=== PATIENT | male | born 1970 | race Caucasian/White ===

== ENCOUNTER 2025-02-18 11:31 | Outpatient (CLI) | payer OTHER, SELFPAY ==
--- NOTE | ~2025-02-18 | PE_ITS ---
EXAMINATION: PET_PETPSMAST_PT DATE: 02/18/2025 13:27 INDICATION: Prostate cancer TECHNIQUE: 5.578 mCi of Illucix Ga-[id number]) was administered i.v. Low dose computed rickey graphy (CT) images were acquired from the base of the brain to the base of the brain to the proximal thighs for attenuation correction and anatomic localization. Positron emission tomography (PET) image s were acquired in the same distribution beginning 72 minutes after injection. Images including fused PET/CT images were reconstructed in axial, coronal, and sagittal planes. Automated exposure control technique was employed. The dose-length product was 956.98mGy-cm. COMPARISON: None FINDINGS: Head/neck: Typical pattern of symmetric physiologic increased activity in the lacrimal, parotid and submandibula r glands as well as along the mucosa of the nasal and oral cavities, pharynx and hypopharynx. No path ologically enlarged cervical lymphadenopathy or suspicious foci of increased uptake in the visualized head or neck. Chest: Mild dependent atelectasis in the bilateral lower lobes. No pneumonia, suspicious pulmonary nodules, pulmonary edema or pleural effusion. Heart size is normal. No pericardial effusion. Thoracic aorta is normal in caliber. No pathologically enlarged or PSMA avid thoracic lymphadenopathy. Abdomen/pelvis/proximal thighs: Physiologic renal accumulation and excretion of activity in the kidneys, bladder and along portions o f ureters. A few small nonobstructing stones at the lower pole calyces of both kidneys the largest on the left measuring 4 mm. Subcentimeter focus of moderate increased activity at the right posterior i nferior aspect of the prostate with maximal SUV of 8.7 consistent with primary prostate cancer. Luba l degree and slightly heterogenous pattern of increased uptake throughout the liver and spleen withou t radiologic correlate or dominant PSMA avid lesion. The gallbladder, pancreas and bilateral adrenal glands are normal. Moderate uptake scattered throughout the bowels with typical duodenal and proximal jejunal predominance and without radiologic correlate, also likely physiologic. Normal appendix. Sma ll fat-containing umbilical small fat-containing right inguinal hernias. No other abnormal foci of in creased uptake or pathologically enlarged lymphadenopathy in the abdomen, pelvis or proximal thighs. Musculoskeletal: Mild S-shaped scoliosis of the lumbar and lower thoracic spine. Chronic appearing compression fractur es with mild anterior vertebral body height loss at T10. No suspicious lytic, blastic or abnormally P SA may avid bone lesions to suggest metastatic disease. IMPRESSION: 1. Small focus of moderate increased activity at the right posterior inferior aspect of the prostate consistent with primary prostate cancer. No lesion suspicious for metastatic disease. 2. Bilateral nonobstructing nephrolithiasis. Reviewed, dictated and finalized at location B. IMPRESSION: 1. Small focus of moderate increased activity at the right posterior inferior a spect of the prostate consistent with primary prostate cancer. No lesion suspic ious for metastatic disease. 2. Bilateral nonobstructing nephrolithiasis.
--- OUTSIDE RECORDS SUMMARY | 2025-02-18 12:27 | XMS_ITS ---
Author Organization [facility] truman Address [address] [facility] [address] [place] [address] Care Team Providers Care Canal Driver Name Role Phone Link De Los Santos Unavailable [phone] zzzzMigration, zzzzProvider Unavailable Unav ailable Allergies Allergen (clinical drug ingredient) Drug/Non Drug Allergy documented on EMR Reaction Allergy Type Onset Date Status Mold Unknown Allergy 10/06/2020 Active Pollen Pollen Unknown Allergy 10/06/2020 Active REASON FOR VISIT EMR-Fredi Encounters Encounter Location Date Provider Diagnosis [facility] [address] [facility] [address] [place] [address] 09/14/2023 zzzzProvider zzzzMigration Plan Of Treatment No Information Progress Notes * Olivier GASTELUM BDOB: [birth year] (54 yo M)Acc No.[id number]:09/14/2023 Patient: Alis QUINTANA Olivier Estevez :1970 A ge:52 Y S ex:Male Address:[facility] [place] [address], [address] Subjective: * Chief Complaints: * E MR-Fredi * Medical History: * Surgical History: L ithotripsy; 2016-02-29 * Hospitalization/Major Diagno stic Procedure: * Family History: M igrated Family History: noncontributory . * Social History: M igrated Social History: M igrated Social History: :: 4 Children , Exercise :: Active , Marital Status :: , Substance Use :: Alcohol,socially , Substance Use :: Beer , Substance Use :: Caffeine , Substance Use :: Denies illicit substance abuse , Substance Use :: Tobacco :: Former. * Medications: * Allergies: M old: Allergy - Onset Date 10/06/2020Pollen: Allergy - Onset Date 10/06/2020 Objective: * Vitals: * Physical Examination: Assessment: Plan: * Treatment: * Procedure Codes: * true * Date: Generated for Jeff paul/Jhonatan/Karen on: 0 02/18/2025 12:27 PM CDT
--- OUTSIDE RECORDS SUMMARY | 2025-02-18 12:27 | XMS_ITS | Encounter Summary ---
Author Organization [facility] Address [address] [place] [address] Care Team Providers Care Evaluator Transfer Students Name Role Phone Unavailable Primary Care Provider Unavailabl e Prior Encounters Date Type Department Care Team Description 12/13/2019 Converted CPS Chart Documents [facility] [address] [phone] <No scans attached> 12/13/2019 Converted 13x Documents [facility] [address] [phone] <No scans attached> Plan of Treatment Not on file Procedures Procedure Name Priority Date/Time Associated Diagnosis Comments CANCELLED APPOINTMENT Routine 07/11/2017 2:00 AM CDT 18 DOL CEREC ONLAY 3 SURF Routine 2016 2:00 AM CDT 18 SEAT ONLAY Routine 05/05/2017 2:00 AM CDT NC X-RAY Routine 05/05/2017 2:00 AM CDT LR PERIODONTAL SCALING AND ROOT PLANING - FOUR OR MORE TEETH PER QUADRANT Routine 04/14/2017 2:00 AM CDT LL PERIODONTAL SCALING AND ROOT PLANING - FOUR OR MORE TEETH PER QUADRANT Routine 04/14/2017 2:00 AM CDT ORAL HYGIENE INSTRUCTIONS Routine 2016 2:00 AM CDT LR ANTIBACT IRR/QUAD Routine 04/14/2017 2:00 AM CDT LL ANTIBACT IRR/QUAD Routine 04/14/2017 2:00 AM CDT NC X-RAY Routine 04/14/2017 2:00 AM CDT NC X-RAY Routine 04/14/2017 2:00 AM CDT OFFICE VISIT FOR OBSERVATION (DURING REGULARLY SCHEDULED HOURS) - NO OTHER SERVICES PERFORMED Routine 04/07/2017 2:00 AM CDT NC X-RAY Routine 04/07/2017 2:00 AM CDT NC X-RAY Routine 04/07/2017 2:00 AM CDT NC X-RAY Routine 04/07/2017 2:00 AM CDT NC X-RAY Routine 04/07/2017 2:00 AM CDT UL BREEZY DECON/QD Routine 04/02/2017 2:00 AM CDT UR BREEZY DECON/QD Routine 04/02/2017 2:00 AM CDT UR ANTIBACT IRR/QUAD Routine 04/02/2017 2:00 AM CDT UL ANTIBACT IRR/QUAD Routine 04/02/2017 2:00 AM CDT COMPREHENSIVE ORAL EVALUATION - NEW OR ESTABLISHED PATIENT Routine 03/31/2017 2:00 AM CDT UR PERIODONTAL SCALING AND ROOT PLANING - FOUR OR MORE TEETH PER QUADRANT Routine 03/31/2017 2:00 AM CDT UL PERIODONTAL SCALING AND ROOT PLANING - FOUR OR MORE TEETH PER QUADRANT Routine 03/31/2017 2:00 AM CDT ORAL HYGIENE INSTRUCTIONS Routine 2016 2:00 AM CDT PANORAMIC RADIOGRAPHIC IMAGE Routine 03/31/2017 2:00 AM CDT INTRAORAL - COMPREHENSIVE SERIES OF RADIOGRAPHIC IMAGES Routine 03/31/2017 2:00 AM CDT INTRAORAL PHOTO Routine 03/31/2017 2:00 AM CDT INTRAORAL PHOTO Routine 03/31/2017 2:00 AM CDT INTRAORAL PHOTO Routine 03/31/2017 2:00 AM CDT INTRAORAL PHOTO Routine 03/31/2017 2:00 AM CDT 18 DOL COMPOSITE FILLING Routine 017 2:00 AM CDT Visit Diagnoses Not on file
--- OUTSIDE RECORDS SUMMARY | 2025-02-18 12:27 | XMS_ITS | Clinical Summary ---
Author Organization [facility] Address [address] [place] [address] Care Team Providers Care Fats And Oils Loader Name Role Phone Lis Haddad MD Primary Care Provider [phone] Allergies Active Allergy Reactions Criticality Noted Date Comments Sacubitril-Valsartan Rash Low 01/27/2025 Medications tamsulosin (FLOMAX) 0.4 MG Cap Take 1 capsule (0.4 mg total) by mouth daily. 30 capsule 12/23/2024 Active atorvastatin (LIPITOR) 20 MG tablet Take 1 tablet (20 mg total) by mouth daily. 08/17/2024 Active dilTIAZem CD (CARDIZEM CD) 240 MG 24 hr capsule Take 1 capsule (240 mg total) by mouth daily. 07/01/2024 Active metFORMIN ER (GLUCOPHAGE-XR) 500 MG 24 hr tablet Take 1 tablet (500 mg total) by mouth daily with breakfast. 03/11/2024 Active losartan (COZAAR) 100 MG tablet Take 1 tablet (100 mg total) by mouth daily. 08/17/2024 Active Active Problems No known active problems Encounters Date Type Department Care Team Description 01/28/2025 3:15 PM SENIOR JAVA SOFTWARE DEVELOPER - 01/28/2025 4:08 PM SENIOR JAVA SOFTWARE DEVELOPER Surgery [facility] [place] [address] Anu Izaguirre MD TRANSRECTAL ULTRASOUND GUIDED FUSION PROSTATE BIOPSY, FLEXIBLE CYSTOSCOPY 01/28/2025 2:46 PM SENIOR JAVA SOFTWARE DEVELOPER Anesthesia Event [place] [address] RamachandranNarciso mott MD Jackson, Samantha Rae, FNP 01/28/2025 12:13 PM SENIOR JAVA SOFTWARE DEVELOPER - 01/28/2025 4:20 PM SENIOR JAVA SOFTWARE DEVELOPER Hospital Encounter [facility] [place] [address] Anu Izaguirre MD Discharge Disposition: Home or Self Care (Routine Discharge) 01/28/2025 Travel 01/27/2025 Travel 12/23/2024 3:17 AM SENIOR JAVA SOFTWARE DEVELOPER - 12/23/2024 7:20 AM SENIOR JAVA SOFTWARE DEVELOPER Emergency [facility] [place] [address] Gallo Argueta DO Abdominal Pain Discharge Disposition: Home or Self Care (Routine Discharge) 12/23/2024 Travel from Last 3 Months Social History Tobacco Use Types Packs/Day Years Used Date Smoking Tobacco: Every Day Cigarettes Smokeless Tobacco: Former Chew Alcohol Use Standard Drinks/Week Comments Not Currently 0 (1 standard drink = 0.6 oz pur e alcohol) sober 1 year Sex and Gender Information Value Date Recorded Sex Assigned at Male 12/23/2024 6:47 AM SENIOR JAVA SOFTWARE DEVELOPER Legal Sex Male 2:44 AM SENIOR JAVA SOFTWARE DEVELOPER Gender Identity Not on file Sexual Orientation Not on file Last Filed Vital Signs Vital Sign Reading Time Taken Comments Blood Pressure 158/83 01/28/2025 4:30 PM SENIOR JAVA SOFTWARE DEVELOPER Pulse 47 01/28/2025 4:30 PM SENIOR JAVA SOFTWARE DEVELOPER Temperature 36.3 C (97.4 F) 01/28/2025 4:30 PM SENIOR JAVA SOFTWARE DEVELOPER Respiratory Rate 16 01/28/2025 4:30 PM SENIOR JAVA SOFTWARE DEVELOPER Oxygen Saturation 97% 01/28/2025 4:30 PM SENIOR JAVA SOFTWARE DEVELOPER Inhaled Oxygen Concentration - - Weight 78.5 kg (173 lb 1 oz) 01/28/2025 12:49 PM SENIOR JAVA SOFTWARE DEVELOPER Height 172.7 cm (5' 7.99 ) 01/28/2025 12:49 PM C Body Mass Index 26.32 01/28/2025 12:49 PM SENIOR JAVA SOFTWARE DEVELOPER Plan of Treatment Health Maintenance Due Date Last Done Comments Colorectal Cancer Screening Colonoscopy (10 Years) 1972 Annual Physical 1975 Pneumococcal Vaccine: Pediat rics (0 to 5 Years) and At-Risk Patients (6 to 64 Years) (1 of 2 - PCV) 1978 Hepatitis C 1990 Hepatitis B Vaccines (1 of 3 - 19+ 3-dose series) 1991 Zoster Vaccines (1 of 2) 2022 COVID-19 Vaccine ( - 2023-2 5 season) 2024 Influenza Adult (#1) 2024 09/20/2020 DTaP, Tdap and Td Vaccines ( 2 - Td or Tdap) 07/03/2031 07/03/2021 Meningococcal B Vaccine Aged Out No l onger eligible based on patient's age to complete this topic Meningococcal Vaccine Aged Out No nisha mehul eligible based on patient's age to complete this topic RSV Immunizations Under 20 Months Aged Out No longer eligible based on patient's age to complete this topic Procedures Procedure Name Priority Date/Time Associated Diagnosis Comments POCT GLUCOSE - HARDY DOCKED DEVICE Routine 01/28/2025 3:22 PM SENIOR JAVA SOFTWARE DEVELOPER BIOPSY OF PROSTATE,NEEDLE/PUNC H 01/28/2025 2:45 PM SENIOR JAVA SOFTWARE DEVELOPER ELEVATED PROSTATE SPECIFIC ANTIGEN R97.20 Case Notes SCHED BY FAX ON 01/05/25 [facility] PHONE ASSESS Special Needs [facility] [phone] POCT GLUCOSE - HARDY DOCKED DEVICE Routine 01/28/2025 1:14 PM SENIOR JAVA SOFTWARE DEVELOPER PATHOLOGY Routine 01/28/2025 12:00 AM SENIOR JAVA SOFTWARE DEVELOPER CT ABD+PEL W CON STAT 12/23/2024 5:28 AM SENIOR JAVA SOFTWARE DEVELOPER URINALYSIS, AUTO, COMPLETE STAT 12/23/2024 3:40 AM SENIOR JAVA SOFTWARE DEVELOPER COMPREHENSIVE METABOLIC PANEL STAT 12/23/2024 3:37 AM SENIOR JAVA SOFTWARE DEVELOPER CBC W/DIFF AUTOMATED STAT 12/23/2024 3:37 AM SENIOR JAVA SOFTWARE DEVELOPER from Last 3 Months Results * POCT glucose (01/28/2025 3:22 PM SENIOR JAVA SOFTWARE DEVELOPER) Only the most recent of2 resultswithin the time period is included. GLUCOSE POC 84 70 - 99 mg/dL 01/28/2025 3:23 PM SENIOR JAVA SOFTWARE DEVELOPER [facility] 01/28/2025 3:22 PM SENIOR JAVA SOFTWARE DEVELOPER us Anu Izaguirre MD POCT ORDERABLES - DEVICE Final Result [facility] [address] [place] [address], * Pathology (01/28/2025 12:00 AM SENIOR JAVA SOFTWARE DEVELOPER) PATHOLOGY [facility] Department of Laboratory Medicine [address] [place] [phone] , extension [phone] Pathology Report Surgical Pathology Report Name: OLIVIER GASTELUM Specimen #: [id number] Age: 14 1970 (Age: 54) Location: [facility] Sex: M Procedure Date: 01/28/2025 Hospital #: [id number] Date Received: 01/31/2025 Date Reported: 02/03/2025 Provider: ANU IZAGUIRRE MD Source: A: Prostate, NU #1, needle biopsy B: Prostate, left lateral apex, needle biopsy C: Prostate, left lateral mid, needle biopsy D: Prostate, left base, needle biopsy E: Prostate, left medial apex, needle biopsy F: Prostate, left medial mid, needle biopsy G: Prostate, left medial base, needle biopsy H: Prostate, right lateral apex, needle biopsy I: Prostate, right lateral mid, needle biopsy J: Prostate, right lateral base, needle biopsy K: Prostate, right medial apex, needle biopsy L: Prostate, right medial mid, needle biopsy M: Prostate, right medial base, needle biopsy Clinical History: Elevated PSA. FINAL DIAGNOSIS: A. Prostate, region of interest #1, needle biopsies: -Prostatic adenocarcinoma, grade group 2 (Jayess score 3+4 = 7) -Melita score 4 comprises approximately 40% of tumor -Tumor comprises approximately 50% of the specimen and involves 3 of 3 cores -Perineural invasion appreciated -No evidence of extra prostatic extension -Immunohistochemistry the for the cocktail of AMACR/p63/HMWK supports this diagnosis B. Prostate left lateral apex, needle biopsy: -Benign prostatic tissue C. Prostate, left lateral mid, needle biopsy: -Prostatic adenocarcinoma, grade Group 1 (Jayess score 3+3 = 6) -Tumor comprises approximately 5% of the specimen and 1 of 1 core -Negative for extra prostatic extension or perineural invasion D. Prostate, left base, needle biopsy: -Benign prostatic tissue E. Prostate, left medial apex, needle biopsy: -Benign prostatic tissue F. Prostate, left medial mid, biopsy: -Benign prostatic tissue G. Prostate, left medial base, needle biopsy: -Benign prostatic tissue H. Prostate, right lateral apex, needle biopsy: -Prostatic adenocarcinoma, grade group 3 (Melita score 4+3 = 7) -Jayess score 4 comprises approximately 60% of tumor -Tumor comprises approximately 10% of 1 of 1 cores -Negative for extra prostatic extension or perineural invasion -Immunohistochemistry for the cocktail of AMACR/p63/HMWK supports this diagnosis I. Prostate, right lateral mid, needle biopsy: -Benign prostatic tissue J. Prostate, right lateral base, needle biopsy: -Rare highly atypical glands suspicious for carcinoma, see comment K. Prostate, right medial apex, needle biopsy: -Prostatic adenocarcinoma, grade group 2 (Melita score 3+4 = 7) -Jayess score 4 comprises approximately 30% of tumor -Tumor comprises approximately 10% of 1 of 2 cores -Negative for extra prostatic extension or perineural invasion L. Prostate, right medial mid, needle biopsy: -Prostatic adenocarcinoma, grade group 2 (Melita score 3+4 = 7) -Melita score 4 comprises approximately 40% of tumor -Tumor comprises approximately 60% of the specimen and involves 1 of 1 cores -Perineural invasion appreciated -No evidence of extra prostatic extension -Immunohistochemistry the for the cocktail of AMACR/p63/HMWK supports this diagnosis M. Prostate, right medial base, needle biopsy: -Benign prostatic tissue Diagnosis Comment: The specimen from part J demonstrates a very focal area of small atypical glands that is suspicious for carcinoma, however the foci is too small to evaluate definitively. Gross Description: A. Received in formalin, labeled with a patient label and as NU #1 are 3 less than 0.1 cm in diameter delicate white-patricio tissue cores that range from 0.8 to 1.5 cm in length. The specimen is entirely submitted in cassette A1. B. Received in formalin, labeled with a patient label and as left lateral apex is a single less than 0.1 cm in diameter delicate white-patricio tissue core that has a length of 1.5 cm. The specimen is entirely submitted in cassette B1. C. Received in formalin, labeled with a patient label and as left lateral mid is a single less than 0.1 cm in diameter delicate white-patricio tissue core that has a length of 1.0 cm. The specimen is entirely submitted in cassette C1. D. Received in formalin, labeled with a patient label and as left lateral base are 2 less than 0.1 cm in diameter delicate white-patricio tissue cores 0.3 and 1.0 cm in length. The specimen is entirely submitted in cassette D1. E. Received in formalin, labeled with a patient label and as left medial apex is a single less than 0.1 cm in diameter delicate white-patricio tissue core that has a length of 1.5 cm. The specimen is entirely submitted in cassette E1. F. Received in formalin, labeled with a patient label and as left medial mid is a single less than 0.1 cm in diameter delicate white-patricio tissue core that has a length of 1.5 cm. The specimen is entirely submitted in cassette F1. G. Received in formalin, labeled with a patient label and as left medial base is a single less than 0.1 cm in diameter delicate white-patricio tissue core that is a length 1.2 cm. The specimen is entirely submitted in cassette G1. H. Received in formalin, labeled with a patient label and as right lateral apex are 2 less than 0.1 cm in diameter delicate white-patricio tissue cores each 0.3 cm in length. The specimen is entirely submitted in cassette H1. I. Received in formalin, labeled with a patient label and as right lateral mid is a single less than 0.1 cm in diameter delicate white-patricio tissue core that has a length of 1.0 cm. The specimen is entirely submitted in cassette I1. J. Received in formalin, labeled with a patient label and as right lateral base is a single less than 0.1 cm in diameter delicate white-patricio tissue core that has a length of 1.2 cm. The specimen is entirely submitted in cassette J1. K. Received in formalin, labeled with a patient label and as right medial apex are 2 less than 0.1 cm in diameter delicate white-patricio tissue cores 0.3 and 0.4 cm in length. The specimen is entirely submitted in cassette K1. L. Received in formalin, labeled with a patient label and as right medial mid is a single less than 0.1 cm in diameter delicate white-patricio tissue core that has a length of 1.0 cm. The specimen is entirely submitted in cassette L1. M. Received in formalin, labeled with a patient label and as right medial base is a less than 0.1 cm in diameter delicate white-patricio tissue core that has a length of 1.5 cm. The specimen is entirely submitted in cassette M1. Gross examination (when applicable) was performed at [facility], [address] [place] [address]. This case was interpreted and signed out at [facility], [address] [place] [address]. All immunohistochemical and histochemical tests were developed by and performed at [facility], [address] [place] [address]. All tests reported here have not been cleared or approved by the U.S. Food and Drug Administration (FDA). This laboratory is regulated under CLIA as qualified to perform high-complexity testing. These tests are used for clinical purposes. They should not be regarded as investigational or for research. Positive and negative controls show appropriate reactivity. Electronically Signed Out MARIA DOLORES GERARD MD [facility] TISSUE PROSTATE / Unknown 2:32 PM SENIOR JAVA SOFTWARE DEVELOPER Tissue specimen (specimen) PROSTATE / Unknown 01/28/2025 2:32 PM SENIOR JAVA SOFTWARE DEVELOPER Tissue specimen (specimen) PROSTATE / Unknown 01/28/2025 2:32 PM SENIOR JAVA SOFTWARE DEVELOPER Tissue specimen (specimen) PROSTATE / Unknown 01/28/2025 2:32 PM SENIOR JAVA SOFTWARE DEVELOPER Tissue specimen (specimen) PROSTATE / Unknown 01/28/2025 2:32 PM SENIOR JAVA SOFTWARE DEVELOPER Tissue specimen (specimen) PROSTATE / Unknown 01/28/2025 2:32 PM SENIOR JAVA SOFTWARE DEVELOPER Tissue specimen (specimen) PROSTATE / Unknown 01/28/2025 2:32 PM SENIOR JAVA SOFTWARE DEVELOPER Tissue specimen (specimen) PROSTATE / Unknown 01/28/2025 2:32 PM SENIOR JAVA SOFTWARE DEVELOPER Tissue specimen (specimen) PROSTATE / Unknown 01/28/2025 2:32 PM SENIOR JAVA SOFTWARE DEVELOPER Tissue specimen (specimen) PROSTATE / Unknown 01/28/2025 2:32 PM SENIOR JAVA SOFTWARE DEVELOPER Tissue specimen (specimen) PROSTATE / Unknown 01/28/2025 2:32 PM SENIOR JAVA SOFTWARE DEVELOPER Tissue specimen (specimen) PROSTATE / Unknown 01/28/2025 2:32 PM SENIOR JAVA SOFTWARE DEVELOPER Tissue specimen (specimen) PROSTATE / Unknown 01/28/2025 2:32 PM SENIOR JAVA SOFTWARE DEVELOPER us Anu Izaguirre MD PATHOLOGY/CYTOLOGY ORDERABLES F inal Result [facility] [address] [place] [address], [id number] * CT ABD+PEL W CON (12/23/2024 5:28 AM SENIOR JAVA SOFTWARE DEVELOPER) Anatomical Region Laterality Modality Abdomen Computed Tomogra phy 12/23/2024 5:35 AM SENIOR JAVA SOFTWARE DEVELOPER Impressions 12/23/2024 5:40 AM SENIOR JAVA SOFTWARE DEVELOPER IMPRESSION: 1. Obstructing proximal left ureteral calculus with mild left hydronephrosis and moderate left hydroureter. 2. Additional nonobstructing bilateral renal calculi. Referred By: Interpreted By: Smith Goff MD, 12/23/2024 5:35 AM Narrative 12/23/2024 5:40 AM SENIOR JAVA SOFTWARE DEVELOPER [address] [address] EXAMINATION: CT ABD+PEL W CON, 12/23/2024 5:35 AM TECHNIQUE: Computed tomographic images of the abdomen and pelvis were obtained after the administration of 100 mL of Isovue 300 injected through the left antecubital fossa IV, without evidence of adverse reaction. Additional coronal and sagittal reformatted images were generated. A dose lowering technique was used for this procedure, which may include, but is not limited to, dose reduction technique, automated exposure control, the use of iterative reconstruction, and ALARA (As Low As Reasonably Achievable) / Image Gently techniques. HISTORY: Left lower abdominal pain radiating to the groin, hematuria. Past medical history of nephrolithiasis. COMPARISON: None available FINDINGS: Atelectasis in the left lung base. Heart size is normal. ABDOMEN: The liver is normal in size and contour. Gallbladder is negative. There is no bile duct dilation. The pancreas is negative. The spleen is normal in size. There is no adrenal mass. There is a 0.5 cm calculus within the proximal left ureter (best seen on series 2 image 88, series 5 image 45). Mild left hydronephrosis. Moderate left hydroureter. There is a 0.4 cm calculus involving the inferior portion of the left kidney. 2 additional punctate calculi involving the inferior portion of the left kidney. Punctate calculus involving the inferior pole of the right kidney (seen on series 2 image 70). Caliber of the abdominal aorta is normal. Mild to moderate arteriosclerotic calcification of the distal abdominal aorta and its branches. No retroperitoneal adenopathy. PELVIS: The appendix is normal. There is no bowel dilation or wall thickening. There is no free fluid within the abdomen or pelvis. There is no free intraperitoneal air. Urinary bladder is grossly normal. Calcifications are seen within the prostate. Bilateral pars interarticularis defects of L5. Intervertebral disc height loss at L5-S1 with endplate degenerative change at this level. No acute fracture nor destructive process of the visualized osseous structures. Procedure Note Smith Goff MD - 12/23/[address] [address] EXAMINATION: CT ABD+PEL W CON, 12/23/2024 5:35 AM TECHNIQUE: Computed tomographic images of the abdomen and pelvis wereobtained after the administration of 100 mL of Isovue 300 injected throughthe left antecubital fossa IV, without evidence of adverse reaction.Additional coronal and sagittal reformatted images were generated. A doselowering technique was used for this procedure, which may include, but isnot limited to, dose reduction technique, automated exposure control, theuse of iterative reconstruction, and ALARA (As Low As ReasonablyAchievable) / Image Gently techniques. HISTORY: Left lower abdominal pain radiating to the groin, hematuria.Past medical history of nephrolithiasis. COMPARISON: None available FINDINGS: Atelectasis in the left lung base. Heart size is normal. ABDOMEN: The liver is normal in size and contour. Gallbladder isnegative. There is no bile duct dilation. The pancreas is negative. Thespleen is normal in size. There is no adrenal mass. There is a 0.5 cmcalculus within the proximal left ureter (best seen on series 2 image 88,series 5 image 45). Mild left hydronephrosis. Moderate left hydroureter.There is a 0.4 cm calculus involving the inferior portion of the leftkidney. 2 additional punctate calculi involving the inferior portion ofthe left kidney. Punctate calculus involving the inferior pole of theright kidney (seen on series 2 image 70). Caliber of the abdominal aortais normal. Mild to moderate arteriosclerotic calcification of the distalabdominal aorta and its branches. No retroperitoneal adenopathy. PELVIS: The appendix is normal. There is no bowel dilation or wallthickening. There is no free fluid within the abdomen or pelvis. Thereis no free intraperitoneal air. Urinary bladder is grossly normal.Calcifications are seen within the prostate. Bilateral parsinterarticularis defects of L5. Intervertebral disc height loss at L5-S1with endplate degenerative change at this level. No acute fracture nordestructive process of the visualized osseous structures. IMPRESSION: 1. Obstructing proximal left ureteral calculus with mild lefthydronephrosis and moderate left hydroureter. 2. Additional nonobstructing bilateral renal calculi. Referred By: Interpreted By: Smith Goff MD, 12/23/2024 5:35 AM Gallo Argueta DO CT Final Result * (ABNORMAL) URINALYSIS, AUTO, COMPLETE (12/23/2024 3:40 AM SENIOR JAVA SOFTWARE DEVELOPER) SPECIMEN TYPE URINE CLEAN CATCH 12/23/2024 3:40 AM SENIOR JAVA SOFTWARE DEVELOPER [facility] COLOR (U) LIGHT ORANGE 12/23/2024 4:36 AM SENIOR JAVA SOFTWARE DEVELOPER [facility] TRANSPARENCY TURBID 12/23/2024 4:36 AM SENIOR JAVA SOFTWARE DEVELOPER [facility] SPECIFIC GRAVITY (U) 1.021 1.001 - 1.030 12/23/2024 4:36 AM SENIOR JAVA SOFTWARE DEVELOPER [facility] U PH 7.0 5.0 - 9.0 12/23/2024 4:[address] [facility] LEUKOCYTES (U) NEGATIVE NEGATIVE 12/23/2024 4:[address] [facility] NITRITES NEGATIVE NEGATIVE 12/23/2024 4:36 AM SENIOR JAVA SOFTWARE DEVELOPER [facility] PROTEIN RANDOM (U) 20 <30 MG/DL 12/23/2024 4:[address] [facility] GLUCOSE (U) NORMAL NORMAL MG/DL 12/23/2024 4:[address] [facility] KETONES MG/DL (U) NEGATIVE NEGATIVE MG/DL 12/23/2024 4:[address] [facility] UROBILINOGEN NORMAL NORMAL MG/DL 12/23/2024 4:[address] [facility] BILIRUBIN (U) NEGATIVE NEGATIVE MG/DL 12/23/2024 4:[address] [facility] BLOOD (U) 3+(A) NEGATIVE 12/23/2024 4:[address] [facility] WBC/HPF 1 <6 /HPF 12/23/2024 4:[address] [facility] RBC/HPF >100(H) <6 /HPF 12/23/2024 4:[address] [facility] URINE SPECIMEN OBTAINED BY CLEAN CATCH PROCEDURE / Unknown 12/23/2024 3:40 AM SENIOR JAVA SOFTWARE DEVELOPER us Gallo Argueta DO URINE ORDERABLES Final Result [facility] [address] [place] [address], [place] [phone] * (ABNORMAL) COMPREHENSIVE METABOLIC PANEL (12/23/2024 3:37 AM [facility] GLUCOSE 156(H) 70 - 99 MG/DL 12/23/2024 4:[address] [facility] BUN 13 7 - 18 MG/DL 12/23/2024 4:[address] [facility] CREATININE S/P/B 0.71 0.7 - 1.3 MG/DL 12/23/2024 4:[address] [facility] SODIUM S/P/B 138 136 - 145 MMOL/L 12/23/2024 4:[address] [facility] POTASSIUM S/P/B 3.7 3.5 - 5.1 MMOL/L 12/23/2024 4:[address] [facility] CHLORIDE S/P/B 108 97 - 115 MMOL/L 12/23/2024 4:[address] [facility] CO2 24.1 21 - 32 MMOL/L 12/23/2024 4:[address] [facility] CALCIUM S/P/B 9.1 8.5 - 10.1 MG/DL 12/23/2024 4:[address] [facility] BILIRUBIN TOTAL S/P/B 0.4 0.2 - 1.2 MG/DL 12/23/2024 4:[address] [facility] Comment: THIS ASSAY IS NOT RECOMMENDED FOR PATIENTS UNDERGOING TREATMENT WITH ELTROMBOPAG DUE TO THE POTENTIAL FOR FALSELY ELEVATED RESULTS. TOTAL PROTEIN S/P/B 7.5 6.4 - 8.2 G/DL 12/23/2024 4:[address] [facility] ALBUMIN S/P/B 4.0 3.4 - 5.0 G/DL 12/23/2024 4:[address] [facility] AST 17 15 - 37 U/L 12/23/2024 4:[address] [facility] ALT 18 16 - 60 U/L 12/23/2024 4:[address] [facility] ALKALINE PHOSPHATASE S/P/B 68 50 - 136 U/L 12/23/2024 4:[address] [facility] ANION GAP 5.9 2 - 10 MMOL/L 12/23/2024 4:[address] [facility] BUN CREATININE RATIO 18.3 6 - 26 12/23/2024 4:[address] [facility] A/G RATIO 1.1 1.0 - 2.0 RATIO 12/23/2024 4:[address] [facility] GFR ESTIMATE >90 >90 ML/MIN/1.7 3 M2 12/23/2024 4:[address] [facility] Comment: NOTE: eGFR is not calculated for patients <18 years of age or gender unknown. This is an estimated GFR calculation using the new CKD EPI creatinine equation without race and so does not require a correction factor for race. This estimated GFR should not be used for calculating drug doses. 12/23/2024 3:37 AM SENIOR JAVA SOFTWARE DEVELOPER Gallo Argueta DO LABORATORY Final Result [facility] [address] [place] [address], [place] [phone] * (ABNORMAL) CBC W/DIFF AUTOMATED (12/23/2024 3:37 AM SENIOR JAVA SOFTWARE DEVELOPER) WBC 12.48(H) 4.5 - 11.0 x10'3/uL 12/23/2024 4:[address] [facility] RBC 5.01 4.70 - 6.10 x10'6/uL 12/23/2024 4:[address] [facility] HGB 15.0 14.0 - 18.0 G/DL 12/23/2024 4:[address] [facility] HCT 43.9 43.0 - 54.0 % 12/23/2024 4:[address] [facility] MCV 87.6 80.0 - 94.0 FL 12/23/2024 4:[address] [facility] MCH 29.9 27.0 - 31.0 PG 12/23/2024 4:[address] [facility] MCHC 34.2 32.0 - 36.0 G/DL 12/23/2024 4:[address] [facility] RDW 12.2 11.5 - 14.5 % 12/23/2024 4:[address] [facility] PLT 270 130 - 400 x10'3/uL 12/23/2024 4:[address] [facility] MPV 9.2(L) 9.3 - 12.2 FL 12/23/2024 4:[address] [facility] DIFFERENTIAL TYPE AUTOMATED DIFFERENTIAL 12/23/2024 4:[address] [facility] NEUTROPHILS % 84.9 % 12/23/2024 4:[address] [facility] LYMPHOCYTES % 9.2 % 12/23/2024 4:[address] [facility] MONOCYTES % 5.1 % 12/23/2024 4:[address] [facility] EOSINOPHILS 0.3 % 12/23/2024 4:[address] [facility] BASOPHILS 0.2 % 12/23/2024 4:[address] [facility] IMMATURE GRANS % 0.3 % 12/23/19 4:[address] [facility] ABS. NEUTROPHILS 10.59(H) 1.80 - 7.70 x10'3/uL 12/23/2024 4:07 AM SENIOR JAVA SOFTWARE DEVELOPER [facility] ABS. LYMPHOCYTES 1.15 1.00 - 4.80 x10'3/uL 12/23/2024 4:07 AM SENIOR JAVA SOFTWARE DEVELOPER [facility] ABS. MONOCYTES 0.64 0.30 - 0.82 x10'3/uL 12/23/2024 4:07 AM SENIOR JAVA SOFTWARE DEVELOPER [facility] ABS. EOSINOPHILS 0.04 0.04 - 0.54 x10'3/uL 12/23/2024 4:07 AM SENIOR JAVA SOFTWARE DEVELOPER [facility] ABS. BASOPHILS 0.02 0.01 - 0.08 x10'3/uL 12/23/2024 4:07 AM SENIOR JAVA SOFTWARE DEVELOPER [facility] ABS. IMMATURE GRANULOCYTES 0.04 0.00 - 0.49 x10'3/uL 12/23/2024 4:07 AM SENIOR JAVA SOFTWARE DEVELOPER [facility] 12/23/2024 3:37 AM SENIOR JAVA SOFTWARE DEVELOPER us Gallo Argueta DO LABORATORY Final Result [facility] [address] [place] [address], [place] [phone] from Last 3 Months Insurance [employer] Care Teams Fats And Oils Loader Relationship Specialty Start Date End Date Lis Haddad MD [address] [place] [id number] PCP - General FAMILY PRACTICE 12/23/24
--- OUTSIDE RECORDS SUMMARY | 2025-02-18 12:27 | XMS_ITS | Clinical Summary ---
Author Organization [facility] Address [address] [address] Care Team Providers Care Slot Machine Floor Person Name Role Phone Jermain Carney MD Primary Care Provider [phone] Allergies Active Allergy Reactions Criticality Noted Date Comments Poison Vanessa Extract Rash Medium 07/22/2016 Medications sertraline (Zoloft) 50 mg tablet Take 1 Tablet (50 mg) by mouth daily. 90 Tablet 1 2 Active sildenafiL (VIAGRA) 100 mg tabletIndication s:Erectile dysfunction due to diseases classified elsewhere Take 0.5 Tablets (50 mg) by mouth 1 time daily as needed for Erectile Dysfunction. 30 Tablet 5 2 Active metoprolol succinate (Toprol XL) 50 mg Extended Release 24 hour tabletIndication s:Atrial fibrillation, unspecified type (CMS/HCC) Take 1 Tablet (50 mg) by mouth daily. 90 Tablet 3 2 Active rivaroxaban (Xarelto) 20 mg Tablet Take 1 Tablet (20 mg) by mouth daily. 30 Tablet 2 2 Active losartan (COZAAR) 50 mg tablet TAKE 1 TABLET(50 MG) BY MOUTH DAILY 90 Tablet 3 3 Active Active Problems Problem Noted Date Diagnosed Date Erectile dysfunction due to diseases classified elsewhere 06/13/2022 Overview (06/13/2022): 06/13/22: patient states he does run into issues with ED when with his girlfriend, but can still get morning erections, believes it is likely related to anxiety. Assessment & Plan (06/13/2022 4:15 PM CDT): We agreed to try sildenafil 50 mg to help, if he can get past the performance mental barrier, he may not need it after a while. If 50 mg is not enough can go up to 100 mg. Be aware that medications like Viagra and Cialis can interact with nitroglycerin and cause significant low blood pressure. If you ever have a heart attack and needs to be administered nitroglycerin by the paramedics, definitely make them aware if you have taken Viagra or Cialis that day, since these medications can interact and drop your blood pressure dangerously low. Suspected sleep apnea 06/13/2022 Overview (06/13/2022): 06/13/22: patient states he has been told in the past he may have TAL. He snores at night, and has been told he would stop breathing for a few seconds in his sleep then gasp for air. Hemoglobin is elevated on blood work. Assessment & Plan (06/13/2022 4:54 PM CDT): Will refer to sleep medicine for sleep study. Discussed with patient that sleep study is particularly important given his diagnosis of A. fib. Atrial fibrillation 06/13/2022 Overview (06/13/2022): 06/13/22: Patient has irregular heart rhythm on exam, EKG shows afib with HR 118. Patient is asymptomatic and denies any palpitations or discomfort. Vitals are stable. [id number] score of 1 from hypertension. Started patient on Toprol XL 50. Assessment & Plan (06/13/2022 4:53 PM CDT): Given patient is asymptomatic and has stable vitals, will start patient on Toprol-XL 50 for rate control of his A. fib. No need for anticoagulation at this point. I suspect his A. fib is from undiagnosed sleep apnea, which is why he needs to get a sleep study done. We will still refer to cardiology to see if any further work- up is needed. Prediabetes 03/25/2022 Overview (06/13/2022): Lab Results Component Value Date HGBA1C 5.7 (H) 03/22/2022 Assessment & Plan (06/13/2022 4:26 PM CDT): Discussed diet and lifestyle modifications that can help. Essential hypertension 03/11/2022 Overview (06/13/2022): BP Readings from Last 3 Encounters: 06/13/22 138/80 03/11/22 (!) 140/78 10/09/21 127/72 06/13/22: cough has resolved since switching from lisinopril 10 to losartan 50, did check it twice at home, BP on 06/10 had 106/69, on 06/11 had 123/68, he is pretty sure the BP monitor is accurate as his parents use it too. Current BP regimen: Losartan 50, add Toprol XL 50 Past intolerant meds: lisinopril like caused the cough Adverse effects with BP meds (ex. lightheadedness, falls): none Assessment & Plan (06/13/2022 4:27 PM CDT): Stable. Clinic reading signifcantly higher than home read, likely element of white coat syndrome. Asked patient to bring home monitor to next visit. Assessment & Plan (03/11/2022 3:26 PM CDT): Switch from Lisinopril to Losartan due to cough, and use Losartan 50 given BP is suboptimally controlled. Dysthymia 03/11/2022 Overview (06/13/2022): 03/11/22: patient under quite a bit of stress lately due to going through a divorce. Patient states he does not feel depressed, but has been drinking more. 06/13/22: patient has not started the Zoloft due to concern about sexual side effects as he has a girlfriend. Assessment & Plan (06/13/2022 4:26 PM CDT): Will try to address ED issue, then patient can start Zoloft any time. Assessment & Plan (03/11/2022 3:26 PM CDT): Discussed whether patient may be interested in a SSRI, he would be willing to try, discussed potential benefit vs side effects. Obesity (BMI 30.0-34.9) 03/11/2022 Overview (03/11/2022): Wt Readings from Last 3 Encounters: 03/11/22 95.8 kg (211 lb 1.9 oz) 02/24/21 85.3 kg (188 lb) 02/22/21 85.3 kg (188 lb) Body mass index is 32.1 kg/m . Assessment & Plan (03/11/2022 3:29 PM CDT): Counseled regarding the benefits of a low calorie, well-balanced diet and daily exercise. Encouraged patient to incorporate an exercise regimen into his core daily routine to improve moth exterminator adherence. Discussed importance of reducing total calorie intake, eating slower and in smaller portions, and stopping once no longer hungry. Immunizations Immunization Administration Dates Next Due (ADACEL/BOOSTRIX)(10 YR UP) TDAP VACCINE, 0.5ML, IM 07/03/2021 Influenza Seasonal Unspecified Formulation IM Family History Medical History Relation Name Comments No Known Problems Father No Known Problems Mother Relation Name Status Comments Father Mother Social History Tobacco Use Types Packs/Day Years Used Date Smoking Tobacco: Never Smokeless Tobacco: Current Chew Alcohol Use Standard Drinks/Week Comments Yes 0 (1 standard drink = 0.6 oz pur e alcohol) Sex and Gender Information Value Date Recorded Sex Assigned at Not on file Legal Sex Male 11:05 PM CDT Gender Identity Not on file Sexual Orientation Not on file Last Filed Vital Signs Vital Sign Reading Time Taken Comments Blood Pressure 126/84 07/02/2022 3:53 PM CDT Pulse 92 07/02/2022 3:53 PM CDT irreg ular Temperature 36.6 C (97.8 F) 06/13/2022 3:50 PM CDT Respiratory Rate 19 10/09/2021 5:22 PM SAP BPC DEVELOPER Oxygen Saturation 95% 06/13/2022 3:50 PM CDT Inhaled Oxygen Concentration - - Weight 97.1 kg (214 lb) 07/02/2022 3:53 PM CDT Height 172.7 cm (5' 8 ) 07/02/2022 3:53 PM CDT Body Mass Index 32.54 07/02/2022 3:53 PM CDT Plan of Treatment Health Maintenance Due Date Last Done Comments HEPATITIS B VACCINES (1 of 3 - 19+ 3-dose series) 1991 FIT-DNA Q 3 years 2017 FIT/FOBT Q 1 year 2017 Flex Sig/CT Colonography Q 5 years 2017 ZOSTER VACCINE (1 of 2) 2022 INFLUENZA VACCINE (#1) 2024 03/11/2022, 2019 COVID-19 Vaccine ( season) 07/25/202404/2021, 06/01/2021 Preventative Visit- Commercial 11/24/2024 03/11/2022 , 03/11/2022 COLORECTAL SCREENING 06/21/2029 06/21/2019 Colorectal Cancer Screening 06/21/2029 DTAP/TDAP/TD VACCINES (2 - Td or Tdap) 07/03/2031 Insurance [facility] [employer] OPEN ACCESS H[employer] RX [employer] Express Care Teams Slot Machine Floor Person Relationship Specialty [place] [address] [facility] [address] [place] [address] PCP - General Internal Medicine 03/11/22
--- OUTSIDE RECORDS SUMMARY | 2025-02-18 12:27 | XMS_ITS | Clinical Summary ---
Author Organization [facility] Address [address] [place] [address] Care Team Providers Care Line Dancer Name Role Phone Unavailable Primary Care Provider Unavailabl e Social History Tobacco Use Types Packs/Day Years Used Date Smoking Tobacco: Never Assessed Sex and Gender Information Value Date Recorded Sex Assigned at Not on file Legal Sex Male 1:23 AM PST Gender Identity Not on file Sexual Orientation Not on file Plan of Treatment Not on file
--- OUTSIDE RECORDS SUMMARY | 2025-02-18 12:27 | XMS_ITS ---
Author Organization [facility] Address [address] [place] [address] Care Team Providers Care Ssis Etl Developer Name Role Phone Link De Los Santos Unavailable [phone] zzzzMigration, zzzzProvider Unavailable Unav ailable REASON FOR VISIT [facility] Encounters Encounter Location Date Provider Diagnosis [facility] [address] [facility] [address] [place] [address] 09/13/2023 zzzzProvider zzzzMigration Plan Of Treatment Medication Medication Name Sig Start Date Stop Date Notes Meloxicam 15 MG take 1 tablet (15 mg ) by oral route once daily Oral 1 11/15/2020 Disulfiram 250 mg take one-half tablet (125 mg) by oral route once daily for 30 days Oral 1 for 30 07/20/2021 09/18/2021 Naltrexone HCl 50 MG take 1 tablet (50 m g) by oral route once daily for 30 days Oral 1 for 30 10/08/2021 12/07/2021 Lisinopril 10 MG take 1 tablet by ora l route 2 times a day for 30 days Oral 2 for 30 11/27/2021 06/25/2022 oxyCODONE-Acetaminophen 5-32 5 MG take 1 tablet by oral route every 6 hours as needed for 7 days Oral 4 for 7 10/12/2021 10/19/2021 Progress Notes * Olivier GASTELUM BDOB: [birth year] (54 yo M)Acc No.[id number]:09/13/2023 Patient: Olivier DAVIS :1970 A ge:52 Y S ex:Male Address:[facility] [address], [place], [address] * Refills Stop Naltrexone HCl Tablet, 50 MG, Oral, 30, take 1 tablet (50 mg) by oral route once daily for 30 days, 1, 30 Stop oxyCODONE-Acetaminophen Tablet, 5-325 MG, Oral, 28, take 1 tablet by oral route every 6 hours as needed for 7 days, 4, 7 Stop Lisinopril Tablet, 10 MG, Oral, 60, take 1 tablet by oral route 2 times a day for 30 days, 2, 30 Stop Lisinopril Tablet, 10 MG, Oral, 30, take 1 tablet (10 mg) by oral route once daily for 30 days, 1, 30 Stop Naltrexone HCl Tablet, 50 MG, Oral, 30, take 1 tablet (50 mg) by oral route once daily for 30 days, 1, 30 Stop Disulfiram Tablet, 250 mg, Oral, 15, take one-half tablet (125 mg) by oral route once daily for 30 days, 1, 30 Stop Naltrexone HCl Tablet, 50 MG, Oral, 30, take 1 tablet (50 mg) by oral route once daily for 30 days, 1, 30 Stop Naltrexone HCl Tablet, 50 MG, Oral, 30, take 1 tablet (50 mg) by oral route once daily for 30 days, 1, 30 Stop Meloxicam Tablet, 15 MG, Oral, 30, take 1 tablet (15 mg) by oral route once daily, 1 Stop Naltrexone HCl Tablet, 50 MG, Oral, 30, take 1 tablet (50 mg) by oral route once daily for 30 days, 1, 30 Stop Lisinopril Tablet, 10 MG, Oral, 30, TAKE 1 TABLET(10 MG) BY MOUTH EVERY DAY, 30 Subjective: * Chief Complaints: * E MR-Fredi * Medical History: * Surgical History: * Hospitalization/Major Diagno stic Procedure: * Medications: Objective: * Vitals: * Physical Examination: Assessment: Plan: * Treatment: * Procedure Codes: * true * Date: Generated for Jeff paul/Jhonatan/Karen on: 0 02/18/2025 12:27 PM CDT
--- OUTSIDE RECORDS SUMMARY | 2025-02-18 12:27 | XMS_ITS | Referral Summary ---
Author Organization [facility] Address [address] [facility] [address] [place] [address] Care Team Providers Care Quantitative Consultant Name Role Phone Link De Los Santos MD Primary Care Provider [phone] Allergies Active Allergy Reactions Criticality Noted Date Comments Poison Vanessa Extract Rash Medium 07/22/2016 Sacubitril-Valsartan Rash Medium 08/12/2022 Medications atorvastatin (LIPITOR) 20 mg tablet Take 1 tablet (20 mg total) by mouth daily 3 Active azelastine (ASTELIN) 137 mcg (0.1 %) nasal spray Administer 1-2 sprays into affected nostril(s) 2 (two) times a day 3 Active chlordiazePOXID E (LIBRIUM) 25 mg capsule 4 Active dilTIAZem CD 240 mg 24 hr capsule Take 1 capsule (240 mg total) by mouth daily 3 Active FeroSuL 325 mg (65 mg iron) tablet 4 Active folic acid (FOLVITE) 1 mg tablet Take 1 tablet (1 mg total) by mouth daily 3 Active fluticasone propionate (FLONASE) 50 mcg/actuation nasal spray Administer 2 sprays into affected nostril(s) daily 3 Active losartan (COZAAR) 100 mg tablet Take 1 tablet (100 mg total) by mouth daily 3 Active metFORMIN XR (GLUCOPHAGE XR) 500 mg 24 hr tablet 4 Active metoprolol XL (TOPROL-XL) 50 mg extended release tablet Take 1 tablet (50 mg total) by mouth daily 2 Active Rybelsus 7 mg tablet 4 Active Active Problems Problem Noted Date Diagnosed Date External hemorrhoids 04/30/2018 Assessment & Plan (04/30/2018 3:10 PM CDT): Patient has significant hemorrhoids. This is likely the source of recent bleeding. Will give him hemorrhoidal cream and arrange for colonoscopy. He was advised on ways to reduce the occurrence of hemorrhoids. If they do not shrink with conservative management may need surgical option. 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 Gender Identity Not on file Sexual Orientation Not on file Last Filed Vital Signs Vital Sign Reading Time Taken Comments Blood Pressure 155/110 05/18/2019 8:33 PM CDT Pulse 79 05/18/2019 8:33 PM CDT Temperature 36.6 C (97.8 F) 05/18/2019 6:37 PM CDT Respiratory Rate 16 05/18/2019 8:33 PM CDT Oxygen Saturation 97% 05/18/2019 8:33 PM CDT Inhaled Oxygen Concentration - - Weight 96.6 kg (213 lb) 05/18/2019 6:37 PM CDT Height 172.7 cm (5' 8 ) 05/18/2019 6:37 PM CDT Body Mass Index 32.39 05/18/2019 6:37 PM CDT Plan of Treatment Not on file Procedures Procedure Name Priority Date/Time Associated Diagnosis Comments COLONOSCOPY Routine 06/21/2019 from Last 3 Months or Most Recently Relevant to Health Maintenance Results * Colonoscopy (06/21/2019) Anatomical Region Laterality Modality Other Jayson Lau MD ENDOSCOPY PROCEDURES Final Result from Last 3 Months or Most Recently Relevant to Health Maintenance Insurance [facility] Care Teams Quantitative Consultant Relationship Specialty Start Date End Date Link De Los Santos MD [address] [place] [address] PCP - General Internal Medicine 04/30/18
--- OUTSIDE RECORDS SUMMARY | 2025-02-18 12:27 | XMS_ITS | Clinical Summary ---
Author Organization [facility] Address [address] [place] [address] Care Team Providers Care Rough And Trueing Machine Operator Name Role Phone Damian Navarrete MD Unavailable Bee Medina EXTERNAL AUDITOR-COMPUTER SYSTEMS INFORMATION DIRECTOR Unavailable [phone] Liane Andrade EXTERNAL AUDITOR-COMPUTER SYSTEMS INFORMATION DIRECTOR Unavailable [phone] Roque Astudillo MD Unavailable Liane Andrade EXTERNAL AUDITOR-COMPUTER SYSTEMS INFORMATION DIRECTOR Unavailable [phone] Source Comments [facility],non-owned Affiliates and Associated Physician Practices is amultiple site organization consisting of ambulatory clinics and hospital sitesin [place], [place], [place] and [place]. This disclosure is being madepursuant to the Care Everywhere program and may not contain all information available regarding this patient. Last updated 18.[facility] Allergies Active Allergy Reactions Criticality Noted Date Comments Sacubitril-Valsartan Rash Medium 08/12/2022 Extract Of Poison Vanessa Rash Medium 07/22/2016 Medications * Be aware that medications may not be up to date on this document. Alwaysverify current medications with the patient. Medication Sig Dispensed Refills Start Date End Date Status dilTIAZem coated beads 24hr (Cardizem CD) 240 MG capsule Take 1 (one) capsule by mouth once daily 30 capsule 11 12/02/2022 Active auto PAP Use as directed Active atorvastatin (Lipitor) 20 MG tablet Take 1 (one) tablet by mouth once daily 06/20/2023 Active losartan (Cozaar) 100 MG tablet Take 1 (one) tablet by mouth once daily 06/20/2023 Active olopatadine (Pataday) 0.2 % ophthalmic solution Instill 1 (one) drop into both eyes once daily 06/17/2023 Active tamsulosin (Flomax) 0.4 MG capsule Take 1 (one) capsule by mouth once daily 07/03/2023 Active fluticasone propionate (Flonase) 50 MCG/ACT nasal sprayIndications:na juan congestion [place] 2 (two) sprays into each nostril once daily Use 1-2 sprays daily. Aim spray towards outer corner of eye on same side as nostril. Reasons: nasal congestion 16 g 5 10/08/2023 Active Additional Information Patient not taking.Reported on 10/09/2023 azelastine (Astelin) 0.1 % nasal sprayIndications:Al lergic rhinitis, unspecified seasonality, unspecified trigger [place] 1 (one) spray to 2 (two) sprays into each nostril 2 times daily 30 mL 5 10/08/2023 Active Additional Information Patient not taking.Reported on 10/10/2023 folic acid (Folvite) 1 MG tablet TAKE 1 TABLET BY MOUTH EVERY DAY 30 tablet 2 10/09/2023 Active oxyCODONE-acetamino phen (Percocet) 5-325 MG tabletIndications:R enal calculus, left Take 1 (one) tablet by mouth every 6 hours as needed for Pain 12 tablet 10/10/2023 Active Xarelto 20 MG tablet Take 1 (one) tablet by mouth once daily 90 tablet 1 12/10/2023 Active omeprazole (PriLOSEC) 20 MG capsuleIndications: 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 TAKE 1 (ONE) CAPSULE BY MOUTH ONCE DAILY 90 capsule 11/08/2024 Active Active Problems Problem Noted Date Diagnosed Date Hypoxemia associated with sleep 04/02/2023 TAL (obstructive sleep apnea ) - severe with SEVERE hypoxemia, 217 lb, CPAP 14 06/28/2022 Malaise and fatigue 06/28/2022 Class 1 obesity due to exces s calories without serious comorbidity with body mass index (BMI) of 32.0 to 32.9 in adult 06/28/2022 Primary hypertension 06/28/2022 Paroxysmal atrial fibrillation 06/28/2022 Atrial fibrillation with RVR 06/28/2022 Resolved Problems Problem Noted Date Diagnosed Date Resolved Date Snoring 06/28/2022 11/13/2022 Hypersomnia 06/28/2022 11/13/2022 Immunizations Name Administration Dates Next Due TDAP (7yrs+) 07/03/2021 Family History Medical History Relation Name Comments Atrial Fibrillation Father CAD (Coronary Artery Disease) Father Cancer - Breast Mother Relation Name Status Comments Father Alive Mother Alive Sister Alive Social History Tobacco Use Types Packs/Day Years Used Date Smoking Tobacco: Every Day Cigarettes Smokeless Tobacco: Never Tobacco Cessation:Ready to Q uit: Not Asked; Counseling Given: Not Answered Comments:Dip or chew ( current ) Alcohol Use Standard Drinks/Week Comments Yes 14 (1 standard drink = 0.6 oz pure alcohol) 1-2 beers daily or 1 mixed drink AUDIT-C Answer Date Recorded Q1: How often do you have a drink containing alcohol? 4 or more times a week 10/10/2023 Q2: How many drinks containi ng alcohol do you have on a typical day when you are drinking? 1 or 2 Q3: How often do you have si x or more drinks on one occasion? Never 10/10/2023 PHQ-2 Answer Date Recorded Patient Health Questionnaire-2 Score 0 09/23/2023 Sex and Gender Information Value Date Recorded Sex Assigned at Not on file Gender Identity Not on file Sexual Orientation Not on file Last Filed Vital Signs Vital Sign Reading Time Taken Comments Blood Pressure 166/96 10/10/2023 4:30 PM HOUSEFELLOW Pulse 58 10/10/2023 4:30 PM HOUSEFELLOW Temperature 36.3 C (97.3 F) 10/10/2023 4:30 PM HOUSEFELLOW Respiratory Rate 14 10/10/2023 4:30 PM HOUSEFELLOW Oxygen Saturation 93% 10/10/2023 4:30 PM HOUSEFELLOW Inhaled Oxygen Concentration - - Weight 93.4 kg (206 lb) 10/10/2023 12:01 PM HOUSEFELLOW Height 172.7 cm (5' 8 ) 10/10/2023 12:01 PM HOUSEFELLOW Body Mass Index 31.32 10/10/2023 12:01 PM HOUSEFELLOW Plan of Treatment Health Maintenance Due Date Last Done Comments COLOGUARD (AGES 45-75) - COLON CA SCREENING 1972 CT COLONOGRAPHY - COLON CA SCREENING 1972 FIT - COLON CA SCREENING 1972 FLEX SIG - COLON CA SCREENING 1972 HIV SCREENING 1987 HEPATITIS B VACCINE (1 of 3 - 19+ 3-dose series) 1991 PNEUMOCOCCAL VACCINE 50+ (1 of 2 - PCV) 1991 PNEUMOCOCCAL VACCINE (1 of 2 - PCV) 1991 ZOSTER VACCINE (1 of 2) 2022 COVID-19 VACCINE (3 - season) 2024 06/29/2021, 06/01/2021 INFLUENZA VACCINE (#1) 2024 09/20/2020 DEPRESSION SCREENING 11/24/2024 07/17/2023, 05/27/20 SCREENING FOR DIABETES 07/07/2026 , 10/10/2022, 08/14/2022, Additional history exists EGD SURVEILLANCE 09/12/2026 09/12/2023, , 09/12/2023 COLON MONITORING 09/12/2028 09/12/2023, 09/12/2023 Colorectal Cancer Screening 09/12/2028 DTAP/TDAP/TD VACCINES (2 - Td or Tdap) 07/03/2031 07/03/2021 COLONOSCOPY - COLON CA SCREENING 09/12/2033 09/12/2023, 09/12/2023, 06/21/2019 HEPATITIS C SCREENING Completed 03/22/2022 HIB VACCINE Aged Out No longer eligi ble based on patient's age to complete this topic HPV VACCINE Aged Out No longer eligi ble based on patient's age to complete this topic MENINGOCOCCAL (Group B) VACCINE SHARED DECISION-MAKING Aged Out No longer eligible based on patient's age to complete this topic MENINGOCOCCAL GROUPS A/C/Y/W VACCINE Aged Out No longer eligible based on patient's age to complete this topic Procedures Procedure Name Priority Date/Time Associated Diagnosis Comments EGD Routine 09/12/2023 10:23 AM CDT COMPREHENSIVE METABOLIC PANEL STAT 07/07/2023 7:13 AM CDT from Last 3 Months or Most Recently Relevant to Health Maintenance Results * EGD (09/12/2023 10:23 AM CDT) Report Endoscopy POC __ _ Patient Name: Olivier Gastelum Procedure Date: 09/12/2023 10:23 AM Date of : 1970 Admit Type: Outpatient Age: 52 Room: ROOM 1 Gender: Male Attending MD: Gerber Stewart MD, [id number] __ _ Procedure: Upper GI endoscopy Indications: Iron deficiency anemia Providers: Gerber Stewart MD, Carina Barnes RN, Maria Elena Wu RN, Safia Monroe CRNA (Anesthesia Staff) Medicines: Propofol per Anesthesia Complications: No immediate complications. __ _ Estimated Blood Loss: Estimated blood loss: none. Procedure: Pre-Anesthesia Assessment: - Prior to the procedure, a History and Physical was performed, and patient medications and allergies were reviewed. The patient's tolerance of previous anesthesia was also reviewed. The risks and benefits of the procedure and the sedation options and risks were discussed with the patient. All questions were answered, and informed consent was obtained. Prior Anticoagulants: The patient has taken no anticoagulant or antiplatelet agents. ASA Grade Assessment: III - A patient with severe systemic disease. After reviewing the risks and benefits, the patient was deemed in satisfactory condition to undergo the procedure. After obtaining informed consent, the endoscope was passed under direct vision. Throughout the procedure, the patient's blood pressure, pulse, and oxygen saturations were monitored continuously. The [id number] SN [id number] was introduced through the mouth, and advanced to the third part of duodenum. Findings: The Z-line was irregular and was found at the gastroesophageal junction. Biopsies were taken with a cold forceps for histology. Otherwise, normal esophageal mucosa. No varices. Patchy mild inflammation characterized by congestion (edema) and erythema was found in the entire examined stomach. Biopsies were taken with a cold forceps for histology. The examined duodenum was normal. __ _ Impression: - Z-line irregular, at the gastroesophageal junction. Biopsied. - Gastritis. Biopsied. - Normal examined duodenum. Recommendation: - Resume previous diet. - Continue present medications. - Await pathology results. - Observe patient's clinical course. - Patient has a contact number available for emergencies. The signs and symptoms of potential delayed complications were discussed with the patient. Return to normal activities tomorrow. Written discharge instructions were provided to the patient. - Perform a colonoscopy today. Procedure Code(s): --- Professional --- 18998, Esophagogastroduode noscopy, flexible, transoral; with biopsy, single or multiple --- Technical --- 24302, Esophagogastroduode noscopy, flexible, transoral; with biopsy, single or multiple Diagnosis Code(s): --- Professional --- K22.89, Other specified disease of esophagus K29.70, Gastritis, unspecified, without bleeding D50.9, Iron deficiency anemia, unspecified --- Technical --- K22.89, Other specified disease of esophagus K29.70, Gastritis, unspecified, without bleeding D50.9, Iron deficiency anemia, unspecified CPT copyright 2020 [employer]. All rights reserved. The codes documented in this report are preliminary and upon line up examiner review may be revised to meet current compliance requirements. __ Gerber Stewart MD 09/12/2023 10:54:10 AM This report has been signed electronically. Number of Addenda: 0 Note Initiated On: 09/12/2023 10:23 AM [facility] 09/12/2023 10:2 3 AM CDT Gerber Stewart MD GI PROCEDURE ORDERAB LES [facility] * (ABNORMAL) COMPREHENSIVE METABOLIC PANEL (07/07/2023 7:13 AM CDT) Glucose 143(H) 70 - 105 mg/dL 07/07/2023 7:41 AM [facility] Sodium 138 136 - 145 mmol/L 07/07/2023 7:41 AM [facility] Potassium 4.1 3.5 - 5.1 mmol/L 07/07/2023 7:41 AM [facility] Chloride 102 98 - 107 mmol/L 07/07/2023 7:41 AM [facility] CO2 20(L) 23 - 31 mmol/L 07/07/2023 7:41 AM [facility] Calcium 9.6 8.4 - 10.4 mg/dL 07/07/2023 7:41 AM [facility] Anion Gap 16 8 - 18 mmol/L 07/07/2023 7:41 AM [facility] BUN 13 8.4 - 25.7 mg/dL 07/07/2023 7:41 AM [facility] Creatinine 0.84 0.72 - 1.25 mg/dL 07/07/2023 7:41 AM [facility] Alkaline Phosphatase 135 40 - 150 U/L 07/07/2023 7:41 AM [facility] ALT 142(H) 0 - 61 U/L 07/07/2023 7:41 AM [facility] AST 228(H) 5 - 34 U/L 07/07/2023 7:41 AM CDT [facility] Protein Total 7.4 6.4 - 8.3 gm/dL 07/07/2023 7:41 AM CDT [facility] Albumin 4.2 3.5 - 5.2 gm/dL 07/07/2023 7:41 AM CDT [facility] Bilirubin Total 0.5 0.2 - 1.2 mg/dL 07/07/2023 7:41 AM CDT [facility] eGFR by CKD-EPI >90 >=90 mL/min/1.7 3 m2 07/07/2023 7:41 AM CDT [facility] Blood BLOOD SPECIMEN / Unknown Venipuncture / Unknown 07/07/2023 7:13 AM CDT 07/07/2023 7:20 AM CDT Aroldo Palencia MD LAB - CHEMISTRY OR DERABLES [facility] [address] [place] [id number] from Last 3 Months or Most Recently Relevant to Health Maintenance Advance Directives * Full Code (Latest Code Status on File) Date Activated Date Inactivated Comments 08/14/2022 1:06 PM 08/15/2022 9:07 AM Care Teams Rough And Trueing Machine Operator Relationship Specialty Start Date End Date Damian Navarrete MD [address] [place] [address] Cardiology 11/13/22 Bee Medina, EXTERNAL AUDITOR-COMPUTER SYSTEMS INFORMATION DIRECTOR [address] [place] [phone] Nurse Practitioner Nurse Practitioner 11/13/22 Liane Andrade APRN-COMPUTER SYSTEMS INFORMATION DIRECTOR [address] [place] [phone] Nurse Practitioner Sleep Medicine 11/13/22 Roque Astudillo MD [address] [place] [phone] Sleep Medicine 11/13/22 Liane Andrade APRN-COMPUTER SYSTEMS INFORMATION DIRECTOR [address] [place] [phone] Nurse Practitioner Sleep Medicine 10/08/23
--- OUTSIDE RECORDS SUMMARY | 2025-02-18 12:27 | XMS_ITS | Clinical Summary ---
Author Organization [facility] Address [address] [place] [address] Care Team Providers Care Orchid Hand Name Role Phone Link De Los Santos MD Primary Care Provider [phone] Allergies Active Allergy Reactions Criticality Noted Date [...] on file Legal Sex Male 4:43 PM EDUCATION NURSE Gender Identity Not on file Sexual Orientation [...] 05/18/2019 6:37 PM CDT Plan of Treatment Health Maintenance Due Date Last Done Comments Depression Screening 1970 Hepatitis C Screening 1972 Prostate Cancer Screening-PSA 1972 Hepatitis B Screening 1990 Regular Well Visit/Exam 18-64 1990 Zoster Vaccine (1 of 2) 2022 Covid-19 Vaccine (3 - 2023-2 5 season) 2024 06/29/2021, 06/01/2021 Influenza Vaccine (#1) 2024 09/20/2020 Colon Cancer Screening-Colonoscopy 06/21/2029 06/21/2019 DTaP/Tdap/Td Vaccine (2 - Td or Tdap) 07/03/2031 07/03/2021 Pneumococcal vaccine <65 Aged Out No longer eligible based on patient's age to complete this topic Procedures Procedure Name Priority Date/Time Associated Diagnosis Comments COLONOSCOPY Routine 06/21/2019 from Last 3 Months or Most Recently Relevant to Health Maintenance Results * Colonoscopy (06/21/2019) Anatomical Region Laterality Modality Other Jayson Lau MD ENDOSCOPY PROCEDURES Final Result from Last 3 Months or Most Recently Relevant to Health Maintenance Insurance [facility] Care Teams Orchid Hand Relationship Specialty Start Date End Date Link De Los Santos MD [address] [facility] [address] [place] [address] PCP - General Internal Medicine 04/30/18
--- OUTSIDE RECORDS SUMMARY | 2025-02-18 12:27 | XMS_ITS | Encounter Summary ---
Author Organization [facility] Address [address] [place] [address] Care Team Providers Care Storage Battery Charger Name Role Phone Jermain Carney MD Primary Care Provider [phone] Damian Navarrete MD Unavailable Pip[employer]onez PATIENT FLOW COORDINATOR-ACCOUNTS PAYABLE ACCOUNTANT Unavailable Liane Andrade PATIENT FLOW COORDINATOR-ACCOUNTS PAYABLE ACCOUNTANT Unavailable [phone] Roque Astudillo MD Unavailable Bee Medina PATIENT FLOW COORDINATOR-ACCOUNTS PAYABLE ACCOUNTANT Unavailable Liane Andrade PATIENT FLOW COORDINATOR-ACCOUNTS PAYABLE ACCOUNTANT Unavailable [phone] Liane Andrade PATIENT FLOW COORDINATOR-ACCOUNTS PAYABLE ACCOUNTANT Unavailable [phone] Reason for Visit * Reason Onset Date Comments Medication Problem 05/27/2022 Encounter Details Date Type Department Care Team (Late st Contact Info) Description 05/27/2022 Telephone [facility] [address] [place] [address] Vidya Ball APRN-CNP [address] [place] [address] Medication Problem Social History Tobacco Use Types Packs/Day Years Used Date Smoking Tobacco: Never Smokeless Tobacco: Never Alcohol Use Standard Drinks/Week Comments Yes 0 (1 standard drink = 0.6 oz pur e alcohol) PHQ-2 Answer Date Recorded PHQ2 TOTAL SCORE 0 05/27/2022 Sex and Gender Information Value Date Recorded Sex Assigned at Not on file Gender Identity Not on file Sexual Orientation Not on file COVID-19 Exposure Response Date Recorded In the last 10 days, have yo u been in contact with someone who was confirmed or suspected to have Coronavirus/COVID-19? No / Unsure 05/27/2022 10:02 AM CDT documented as of this encounter Miscellaneous Notes * Telephone Encounter - Sharri Stallings - 05/27/2022 12:37 PM CDT Who is calling? Patient What is the reason for call? Patient seen in today, and the pharmacy where his eye drops were prescribed to is closed. Expected Response from the Clinic? Patient is [facility]. ( ) Patient would like a return call once this has been completed please. documented in this encounter Plan of Treatment Not on file documented as of this encounter Visit Diagnoses Not on filedocumented in this encounter Care Teams Storage Battery Charger Relationship Specialty [place] [address] [facility] [address] [place] [address] PCP - General Internal Medicine 06/28/22 07/06/23 Bee Medina APRN-ACCOUNTS PAYABLE ACCOUNTANT [address] [facility] [address] [place] [address] PCP - Attributed-[facility] Commercial 12/25/22 03/23/23 Liane Andrade APRN-ACCOUNTS PAYABLE ACCOUNTANT [address] [place] [address] PCP - Attributed-[facility] Commercial 03/24/23 09/10/23 Damian Navarrete MD [address] [place] [address] Cardiology 11/13/22 Bee Medina, PATIENT FLOW COORDINATOR-[facility] [address] [place] [address] Nurse Practitioner Nurse Practitioner 11/13/22 Liane Andrade, PATIENT FLOW COORDINATOR-[facility] [address] [place] [address] Nurse Practitioner Sleep Medicine 11/13/22 Roque Astudillo MD [address] [place] [address] Sleep Medicine 11/13/22 Liane Andrade, PATIENT FLOW COORDINATOR-[facility] [address] [place] [address] Nurse Practitioner Sleep Medicine 10/08/23 documented as of this encounter
--- OUTSIDE RECORDS SUMMARY | 2025-02-18 12:27 | XMS_ITS | Patient Health Record ---
Author Organization [facility] Address [address] [place] [address] Care Team Providers Care Stator Connector Name Role Phone Link De Los Santos Unavailable [phone] Reason For Referral No Information Immunizations Vaccine Route Administration Date Status Comme nts Zoster IM Intramuscular 08/09/2021 Administered Plan Of Treatment No Information Insurance Providers Payer Name Payer Address Payer Phone Subscriber Number Group Number Insured Name Patient Relationship to Insured Coverage Start Date Coverage End Date Cigna Ppo [address] [place] [address] [phone] [id number] Olivier Gastelum Self - patient is the insured DO NOT USE [id number] Olivier Gastelum Self - patient is the insured [facility] [address] [place], [place] [id number] Olivier Gastelum Self - patient is the insured [facility] [address] [place] [address] [id number] Olivier Gastelum Self - patient is the insured 6 Medical (General) History Surgical History Surgery Date(Month/Year) Lithotripsy; 2016-02-29
== END 2025-02-18 11:32 | disposition home or self-care (01) ==
PROVIDERS: Visit Provider Urology
DX: C61 Malignant neoplasm of prostate (principal); N20.0 Calculus of kidney
CPT/HCPCS: 78815; A9596